=== PATIENT | male | born 1960 | race Caucasian/White ===

== ENCOUNTER 2025-05-14 06:50 | Day surgery (SDC) | payer BC, MEDICARE ==
[2025-05-14] MEDS ORDERED: Sodium Chloride 0.9% 10 ML Syringe IV ONE (06:51)
[2025-05-14] MEDS ORDERED: Lactated Ringers 1,000 ML IV ONE (06:51)
[2025-05-14] MEDS ORDERED: Propofol 200 MG/20 ML SDV IV ONE (06:51)
[2025-05-14] MEDS: Lactated Ringers 1,000 ML IV SCH (07:35)
[2025-05-14] MEDS ORDERED: Propofol 200 MG/20 ML SDV ONE (10:11)
== END 2025-05-14 09:53 | disposition home or self-care (01) ==
LOC: DL.ENDO 06:50
PROVIDERS: ATTEND Internal Medicine Gastroenterology
DX: Z12.11 Encounter for screening for malignant neoplasm of colon (principal); D12.3 Benign neoplasm of transverse colon; R19.5 Other fecal abnormalities; I25.10 Atherosclerotic heart disease of native coronary artery without angina pectoris; I10 Essential (primary) hypertension; E66.09 Other obesity due to excess calories; E78.00 Pure hypercholesterolemia, unspecified; E11.9 Type 2 diabetes mellitus without complications; F17.210 Nicotine dependence, cigarettes, uncomplicated; Z68.35 Body mass index [BMI] 35.0-35.9, adult; Z79.82 Long term (current) use of aspirin; Z79.899 Other long term (current) drug therapy
CPT/HCPCS: 88305; J2704; J7120